=== PATIENT | male | born 1935 | race Caucasian/White ===

== ENCOUNTER 2016-08-23 06:08 | Inpatient (IN) | payer OTHER ==
[~2016-08-23] VITALS: Ht 172.7 cm; Wt 122.4 kg
[~2016-08-23 06:08] MED LIST: CLINDAMYCIN 600 MG/54 ML D5W 54 ML IV SCH; LACTATED RINGER'S 1000ML IV SCH; PATIENT'S ALLERGY INFO NEEDS ENTERED SCH
[2016-08-23] MEDS ORDERED: BUPIVACAINE 0.5 % 5 MG/1 ML MPF 30ML VIAL ONE ×2 (07:46→10:29)
[2016-08-23] MEDS ORDERED: BACITRACIN 50000 UNIT VIAL ONE ×2 (07:46→11:32)
[2016-08-23] MEDS ORDERED: LIDOCAINE HCL 1% 20 ML VIAL ONE ×2 (07:46→10:29)
[2016-08-23] MEDS ORDERED: NVLGI/PEN SC (07:47)
[2016-08-23] MEDS ORDERED: ATOR-54 PO (07:47)
[2016-08-23] MEDS ORDERED: oxygen (07:59)
[2016-08-23] MEDS ORDERED: ADVIN25/60 INH (07:59)
[2016-08-23] MEDS ORDERED: INSDGIPEN SC ×2 (07:59)
[2016-08-23] MEDS ORDERED: DUTA0.5C PO (07:59)
[2016-08-23] MEDS ORDERED: IPRA1AER2 INH (07:59)
[2016-08-23] MEDS ORDERED: LOSA1TAB PO (07:59)
[2016-08-23] MEDS ORDERED: FURO80TA63 PO (07:59)
[2016-08-23] MEDS ORDERED: ARTIOIN OP (07:59)
[2016-08-23] MEDS ORDERED: BTH25 PO (07:59)
[2016-08-23] MEDS ORDERED: DOCU100C31 PO (07:59)
[2016-08-23] MEDS ORDERED: FERR1TAB13 PO (07:59)
[2016-08-23] MEDS ORDERED: METO-217 PO (07:59)
[2016-08-23] MEDS ORDERED: PREG100C PO (07:59)
[2016-08-23] MEDS ORDERED: AMT24 PO (07:59)
[2016-08-23 08:00] VITALS: BP 163/64; PULSE 85; TEMP 36.9; O2SAT 98; BMI 41.0
--- NOTE | 2016-08-23 08:18 | History & Physical Bridge Note ---
H&P Re-Evaluation Bridge Note: I have examined the patient, reviewed the History & Physical and in the interval since the performance of the History & Physical I have noted the following changes of clinical significance: No changes noted
--- NOTE | 2016-08-23 08:18 | Procedure Note ---
Pre-Mod Sedation Assessment General Date of Moderate Sedation: Aug 23, 2016. Review Cardiovascular: regular rate, rhythm Abdomen: soft Lungs: lungs clear Airway Class: II Pre-Sedation Airway Assessment Oral Cavity: Dentures Able to Visualize Vocal Cords: No Short Thick Neck: Yes Hx of Sleep Apnea: Yes Smoking Status: Former Smoker Mallampati Classification: Class II ASA Classification: Class II Procedure Planning Contraindications-for Mod Sed: None Yes Notes The planned sedation has been discussed with the patient and consent obtained. I have identified the patient, determined the appropriateness of sedation and have assessed the patient immediately prior to the procedure. All medicine(s) and interventions are by my order.
[2016-08-23] MEDS ORDERED: MIDAZOLAM HCL 5 MG/ML 1 ML VIAL ONE ×2 (08:36→09:42)
[2016-08-23] MEDS ORDERED: FENTANYL CITRATE INJ 50 MCG/1 ML 2 ML VIAL ONE ×3 (08:36→11:48)
[2016-08-23] MEDS ORDERED: MIDAZOLAM HCL 1 MG/ML 2ML VIAL ONE (11:48)
--- NOTE | 2016-08-23 12:46 | Procedure Note ---
Post-Mod Sedation Assessment General Date of Moderate Sedation Aug 23, 2016. Vital Signs: Vital Signs Past 12 Hours Date Time Temp Pulse Resp B/P Pulse Ox O2 Delivery O2 Flow Rate FiO2 08/23/16 12:35 82 18 145/79 97 Nasal Cannula 3 08/23/16 08:00 36.9 85 20 163/64 98 Room Air Review - Discharge Criteria Vital Signs Stable: Yes Alert/Oriented/Conversant: Yes Returned to Baseline Mental St: Yes Nausea Absent/Minimal: Yes Pain/Discomfort/Absent/Minimal: Yes Normal/Baseline Respirations: Yes Active Bleeding?: No Pt Received D/C Instructions: N/A Prescriptions Given: None Specific Proced. D/C Criteria Distal Pulses Present (Cardiac: N/A Groin site assessed-Card Cath: N/A Voided Prior To Discharge: N/A Discharged Patients Adult Escort/Transportation: N/A
--- NOTE | 2016-08-23 12:48 | [facility] Post Operative Brief Note ---
Immediate Operative Summary Operative Date Aug 23, 2016. 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
[2016-08-23] MEDS ORDERED: OXYCODONE/ACETAMINOPHEN 5-325 TAB PO PRN (13:00)
[2016-08-23] MEDS: IPRATROPIUM BROMIDE/ALBUTEROL respimat INH INH SCH ×3 (13:00→21:05)
[2016-08-23] MEDS ORDERED: ACETAMINOPHEN 325 MG TAB PO PRN (13:00)
[2016-08-23] MEDS ORDERED: GLUCAGON FOR INJ 1 MG VIAL SQ PRN (13:30)
[2016-08-23] MEDS ORDERED: GLUCOSE 40% GEL 15 GM TUBE PO PRN (13:30)
[2016-08-23] MEDS ORDERED: DEXTROSE 50% 50 ML SYR IV PRN (13:30)
[2016-08-23] MEDS ORDERED: GLUCOSE 10 TABS/TUBE PO PRN (13:30)
[2016-08-23 14:21] VITALS: BP 145/74; PULSE 84; TEMP 36.8; Ht 172.7 cm; Wt 122.4 kg
[2016-08-23] MEDS ORDERED: IV FLUIDS COMPLETED PRN (15:15)
[2016-08-23 15:54] VITALS: BP 141/75; PULSE 72; TEMP 36.8; O2SAT 97
[2016-08-23] MEDS: BETHANECHOL CHL 25 MG TAB PO SCH ×2 (17:19→21:07)
[2016-08-23] MEDS: INSULIN ASPART 100 UNITS/ML 3 ML PEN SC SCH ×2 (17:22→21:14)
[2016-08-23 20:00] VITALS: O2SAT 97
[2016-08-23 20:23] VITALS: BP 145/67; PULSE 78; TEMP 36.7; O2SAT 97
[2016-08-23] MEDS ORDERED: INSULIN GLARGINE SOLOSTAR 100 UNITS/ML 3 ML PEN SC SCH (21:00)
[2016-08-23] MEDS: ATORVASTATIN 20 MG TAB PO SCH (21:00)
[2016-08-23] MEDS: PREGABALIN 100 MG CAP PO SCH (21:05)
[2016-08-23] MEDS: FLUTICASONE/SALMETEROL 250/50 (ADVAIR) 14 PUFF/1 INHALER INH SCH (21:05)
[2016-08-24] VITALS (10 sets, daily range): BP systolic 106–172; BP diastolic 53–74; PULSE 52–86; TEMP 36.8–37.1; O2SAT 95–100
--- NOTE | 2016-08-24 06:38 | DIAGNOSTIC IMAGING REPORT ---
CHEST 2 VIEWS ROUTINE CLINICAL HISTORY: Chest x-ray status post pacemaker placement. COMPARISON STUDY: No previous studies for comparison. FINDINGS: The heart is enlarged. There is a left subclavian dual-chamber central venous pacemaker. A right subclavian lead is also visualized. There is no failure. There is no lobar consolidation. There is no pneumothorax.[ IMPRESSION: No evidence of pneumothorax status post pacemaker placement. Electronically signed by: Jose Tavares M.D. 08/24/2016 6:36 AM Dictated Date/Time: 08/24/2016 6:35 AM
[2016-08-24] MEDS: INSULIN ASPART 100 UNITS/ML 3 ML PEN SC SCH ×4 (08:43→21:09)
[2016-08-24] MEDS: FUROSEMIDE 80 MG TAB PO SCH (09:00)
[2016-08-24] MEDS: PREGABALIN 100 MG CAP PO SCH ×2 (09:00→20:50)
[2016-08-24] MEDS ORDERED: INSULIN GLARGINE SOLOSTAR 100 UNITS/ML 3 ML PEN SC SCH (09:00)
[2016-08-24] MEDS: METOPROLOL SUCC 50MG EXT REL TAB PO SCH (09:00)
[2016-08-24] MEDS: LOSARTAN POTASSIUM 25 MG TAB PO SCH (09:00)
[2016-08-24] MEDS: BETHANECHOL CHL 25 MG TAB PO SCH ×4 (09:00→20:51)
[2016-08-24] MEDS: DOCUSATE SODIUM 100 MG CAP PO SCH (09:00)
[2016-08-24] MEDS: FLUTICASONE/SALMETEROL 250/50 (ADVAIR) 14 PUFF/1 INHALER INH SCH ×2 (09:51→20:45)
[2016-08-24] MEDS: IPRATROPIUM BROMIDE/ALBUTEROL respimat INH INH SCH ×4 (09:51→20:45)
[2016-08-24] MEDS ORDERED: CLINDAMYCIN IV 600 MG in DEXTROSE 5% ADD-VANTAGE 50ML 50 ML IV SCH (11:00)
--- NOTE | 2016-08-24 13:05 | History & Physical Bridge Note ---
H&P Re-Evaluation Bridge Note: I have examined the patient, reviewed the History & Physical and in the interval since the performance of the History & Physical I have noted the following changes of clinical significance: PT IS POD #1 FROM RV PACING LEAD REVISION THAT WAS TUNNEDLED ACCROSS THE CHEST; OVERNIGHT PT HAS BEEN HAVING SOME NON CAPTURED PACING SPIKES AND HIS PACING THRESHOLD IS UP TODAY; PT WILL HAVE TO UNDERGO ANOTHER RV LEAD REVISION TODAY
--- NOTE | 2016-08-24 13:05 | Procedure Note ---
Pre-Mod Sedation Assessment General Date of Moderate Sedation: Aug 24, 2016. Vital Signs: Vital Signs Past 12 Hours Date Time Temp Pulse Resp B/P Pulse Ox O2 Delivery O2 Flow Rate FiO2 08/24/16 11:50 37.1 86 18 172/70 95 Room Air 08/24/16 08:01 Room Air 08/24/16 07:50 37.0 58 18 130/61 96 Room Air 08/24/16 04:00 36.8 52 20 106/61 100 Nasal Cannula 2.0 08/24/16 04:00 Room Air Review Cardiovascular: regular rate, rhythm Abdomen: soft Lungs: lungs clear Airway Class: II Pre-Sedation Airway Assessment Oral Cavity: Dentures Able to Visualize Vocal Cords: No Short Thick Neck: Yes Hx of Sleep Apnea: Yes Smoking Status: Former Smoker Mallampati Classification: Class II ASA Classification: Class II Procedure Planning Contraindications-for Mod Sed: None Yes Notes The planned sedation has been discussed with the patient and consent obtained. I have identified the patient, determined the appropriateness of sedation and have assessed the patient immediately prior to the procedure. All medicine(s) and interventions are by my order.
[2016-08-24] MEDS ORDERED: BACITRACIN 50000 UNIT VIAL ONE ×2 (13:17→14:09)
[2016-08-24] MEDS ORDERED: LIDOCAINE HCL 1% 20 ML VIAL ONE (13:17)
[2016-08-24] MEDS ORDERED: BUPIVACAINE 0.5 % 5 MG/1 ML MPF 30ML VIAL ONE (13:17)
[2016-08-24] MEDS ORDERED: FENTANYL CITRATE INJ 50 MCG/1 ML 2 ML VIAL ONE ×2 (13:41→14:13)
[2016-08-24] MEDS ORDERED: MIDAZOLAM HCL 5 MG/ML 1 ML VIAL ONE ×2 (13:41→14:13)
--- NOTE | 2016-08-24 16:58 | [facility] Post Operative Brief Note ---
Immediate Operative Summary Operative Date Aug 24, 2016. 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
--- NOTE | 2016-08-24 16:58 | Procedure Note ---
Post-Mod Sedation Assessment General Date of Moderate Sedation Aug 24, 2016. Vital Signs: Vital Signs Past 12 Hours Date Time Temp Pulse Resp B/P Pulse Ox O2 Delivery O2 Flow Rate FiO2 08/24/16 16:50 85 16 124/66 100 Nasal Cannula 3 08/24/16 13:06 37.1 86 18 172/70 95 Room Air 08/24/16 12:00 95 Room Air 08/24/16 11:50 37.1 86 18 172/70 95 Room Air 08/24/16 08:01 Room Air 08/24/16 07:50 37.0 58 18 130/61 96 Room Air Review - Discharge Criteria Vital Signs Stable: Yes Alert/Oriented/Conversant: Yes Returned to Baseline Mental St: Yes Nausea Absent/Minimal: Yes Pain/Discomfort/Absent/Minimal: Yes Normal/Baseline Respirations: Yes Active Bleeding?: No Pt Received D/C Instructions: N/A Prescriptions Given: None Specific Proced. D/C Criteria Distal Pulses Present (Cardiac: N/A Groin site assessed-Card Cath: N/A Voided Prior To Discharge: N/A Discharged Patients Adult Escort/Transportation: N/A
--- NOTE | 2016-08-24 17:03 | Discharge Instructions ---
Discharge Instructions Admission Reason for Admission: Complete Heart Block,Elevated Rv Threshold Discharge Discharge Diagnosis / Problem: RV PACING LEAD MALFUNCTION; CHB Discharge Goals Goal(s): Improve function Activity Recommendations Activity Limitations: as noted below (DO NOT LIFT THE RIGHT ELBOW OVER THE RIGHT SHOULDER FOR 1 MONTH; DO NOT LIFT MORE THAN 10 POUNDS WITH EITHER ARM FOR 2 WEEKS) Exercise/Sports Limitations: as tolerated May Resume Sexual Activity: after follow-up appointment Shower/Bathe: tomorrow Driving or Machine Use: resume 1 day after discharge . Current Hospital Diet Patient's current hospital diet: AHA Diet (Heart Healthy) Discharge Diet Recommended Diet: AHA Diet (Heart Healthy), Diabetes Type 2 Diet Procedures Procedures Performed: RV PACING LEAD REVISION, DUAL CHAMBER RATE RESPONSIVE PACEMAKER GENERATOR CHANGE, POCKET REVISION, CAPPED THE OLD RV PACING LEAD FOLLOWING DAY ANOTHER RV PACING LEAD REVISION Pending Studies Studies pending at discharge: no Medical Emergencies . Who to Call and When: Medical Emergencies: If at any time you feel your situation is an emergency, please call 911 immediately. . Non-Emergent Contact Non-Emergency issues call your: [employer] . . "Provider Documentation" section prepared by Lucy Russell. VTE Core Measure Inpt VTE Proph given/why not?: Treatment not indicated
--- NOTE | 2016-08-24 17:08 | Discharge Summary ---
Discharge Summary Admission Date: Aug 24, 2016 at 11:31 Discharge Date: Aug 25, 2016 Discharge Disposition: Home Principal Diagnosis: RV PACING LEAD MALFUNCTION Secondary Diagnoses/Problems: INTERMITTENT CHB HTN HLD CHRONIC RIGHT SIDED HF, NYHA CLASS II CKD STAGE III PULMONARY HTN DM PURNIMA Procedures: RV PACING LEAD REVISION WITH TUNNELING ACROSS THE CHEST AND RATE RESPONSIVE PERMANENT PACEMAKER GENERATOR CHANGE ON 08/23/2016 BUT THEN ON 08/24/2016 HAD TO REDO THE RV LEAD REVISION DUE TO INTERMITTENT CAPTURE AND ELEVATED THRESHOLDS Medication Reconciliation Continued Medications: Artificial Tears Oph Oint (Lacri-Lube Sop Oph Oint) Oint 0.25-0.5 INCH OP QID, #1 TUBE TO THE AFFECTED EYE UP TO QID PRN Atorvastatin (Lipitor) 20 Mg Tab 1 TAB PO PM for 90 Days, #90 TAB 1 Refill Bethanechol Chl (Bethanechol Chloride) 25 Mg Tab 25 MG PO QID Docusate Sodium (Docusate Sodium) 100 Mg Cap 1 CAP PO DAILY for 30 Days, #30 CAP Dutasteride (Avodart) 0.5 Mg Cap 1 CAP PO DAILY for 30 Days, #30 CAP 5 Refills Ferrous Sulfate (Kp Ferrous Sulfate) 325 Mg Tab 1 TAB PO DAILY for 30 Days, #30 TAB 3 Refills Fluticasone Prop/Salmeterol (Advair Diskus 250/50 60 Dose) 1 Ea Aerp 1 PUFFS INH BID for 90 Days, #3 INHALER 3 Refills Furosemide (Lasix) 80 Mg Tab 1 TAB PO DAILY for 30 Days, #30 TAB 5 Refills Insulin Aspart (Novolog Flexpen) 100 Units/Ml Inj 6 UNITS SC TID before meals Insulin Glargine (Lantus Solostar) 100 Unit/Ml Inj 35 SC AM, PEN Insulin Glargine (Lantus Solostar) 100 Unit/Ml Inj 30 SC PM, PEN Ipratropium-Albuterol (Combivent Respimat) 1 Aer Aer 1 PUFFS INH QID, INH Losartan Potassium (Cozaar) 25 Mg Tab 1 TAB PO DAILY for 30 Days, #30 TAB 5 Refills Lubiprostone (Amitiza) 24 Mcg Cap 1 CAP PO BID for 30 Days, #60 CAP 5 Refills Metoprolol Succinate (Toprol Xl) 50 Mg Tabcr 50 MG PO DAILY, #30 TAB Pregabalin (Lyrica) 100 Mg Cap 1 CAP PO BID for 30 Days, #60 CAP 2 Refills [oxygen] () Hospital Course PT WAS ADMITTED FOR ELECTIVE RV LEAD PACING LEAD REVISION DUE TO ELEVATED THRESHOLDS. HE UNDERWENT PROCEDURE INITIALLY ON 08/23/2016 WITHOUT COMPLICATIONS ; HOWEVER, BEING MONITORED OVERNIGHT WE FOUND INTERMITTENT RV PACING CAPTURE AND THE RV PACING THRESHOLD WAS ELEVATED SO WE HAD TO RE-OPERATE ON 08/24/2016. SECOND PROCEDURE DID NOT HAVE ANY COMPLICATIONS AND DID HAVE BETTER OUTCOMES. PT WAS MONITORED OVERNIGHT AND DISCHARGED HOME IN A STABLE CONDITION ON 2016. Total time spent on discharge = This includes examination of the patient, discharge planning, medication reconciliation, and communication with other providers. Discharge Instructions ACTIVITY RECOMMENDATIONS: * Do not raise affected arm (RIGHT) over head for 1 weeks. SPECIAL CARE INSTRUCTIONS: * If bleeding occurs, apply direct pressure to area for 5 minutes. * Call your doctor if you have severe pain, fever, drainage or bleeding at site. * Keep dressing on and dry for 48 hours then remove. * Keep any scheduled doctor's appointment. * Implant Card - hand held device with website information given. SKIN IRRITATION: * You may experience some redness and/or swelling in the area where radiation was administered. If any skin irritation occurs, please contact your family physician. FOLLOW UP VISIT: Keep any scheduled doctor appointments.
[2016-08-24] MEDS: VANCOMYCIN INJ 1,000 MG in SODIUM CHLORIDE 0.9% 250ML 250 ML IV SCH (19:36)
[2016-08-24] MEDS ORDERED: PHARMACY GLYCEMIC MGMT CONSULT PRN (20:15)
[2016-08-24] MEDS: ATORVASTATIN 20 MG TAB PO SCH (20:45)
[2016-08-24] MEDS ORDERED: INSULIN GLARGINE SOLOSTAR 100 UNITS/ML 3 ML PEN SC ONE (20:45)
--- NOTE | 2016-08-24 20:55 | Pharmacy Progress Note ---
Glycemic: Assessment & Plan Date of Service Aug 24, 2016. Assessment & Plan 08/24/16 ASSESSMENT: * 80 yo M admitted for cardiology evaluation/intervention. BSGs have been elevated due to patient refusing Novolog dosing today and Lantus not being given the AM of 08/23 and the AM of 08/24. Since admission, patient has only received PM dosing of Lantus (about half his basal regimen). Nurse called pharmacy with BSG 360 mg/dL. PLAN: * Instead of giving home dose of Lantus tonight, I will increase to 50 units X 1 dose since patient is basal deficient from the past few days * Resume home regimen of Lantus in the AM * I will tighten his Novolog and add more frequent checks due to sustained hyperglycemia * Patient will likely be discharged home tomorrow on home regimen- unable to assess if regimen is appropriate as we have no A1c from this admission * Basal insulin: Lantus 50 units now X 1, then resume Lantus 35 units in the AM and 30 units in the PM * Correctional Insulin: Novolog Correction per scale ACHS Goal Range: Low 100 mg/dL - High 140 mg/dL Correction Factor: 15 mg/dL/unit * Prandial insulin: Per carb ratio of 1 unit per 5 grams CHO consumed Pharmacy will continue to monitor patient daily and write orders per [facility] inpatient glycemic control protocol. Thanks. * Please note that the plan above was derived based on current level of insulin resistance and hospital stress. These recommendations are appropriate for inpatient admission only. Plan of care upon discharge will need to be reassessed to avoid potential outpatient hypo/hyperglycemia.
[2016-08-25] VITALS (8 sets, daily range): BP systolic 101–151; BP diastolic 43–81; PULSE 74–92; TEMP 36.8–37.1; O2SAT 96–99
[2016-08-25] MEDS: INSULIN ASPART 100 UNITS/ML 3 ML PEN SC SCH ×3 (00:24→07:00)
[2016-08-25 06:11] LABS: HEMATOCRIT 33.7 % (42-52); MEAN CELL VOLUME 93.9 fL (80-100); MEAN CORPUSCULAR HEMOGLOBIN 32.3 pg (25-34); MEAN CORPUSCULAR HGB CONC 34.4 g/dl (32-36); MEAN PLATELET VOLUME 10.2 fL (7.4-10.4); PLATELET COUNT 138 K/uL (130-400); RED BLOOD COUNT 3.59 M/uL (4.7-6.1); WHITE BLOOD COUNT 8.27 K/uL (4.8-10.8)
[2016-08-25 06:38] LABS: BUN/CREATININE RATIO 14.5 (10-20); CALCIUM 8.7 mg/dl (8.5-10.1); CREATININE 1.5 mg/dl (0.60-1.40); POTASSIUM 4.1 mmol/L (3.5-5.1)
--- NOTE | 2016-08-25 06:51 | DIAGNOSTIC IMAGING REPORT ---
CHEST 2 VIEWS ROUTINE CLINICAL HISTORY: Pacemaker placement COMPARISON STUDY: 08/24/2016 FINDINGS: The cardiac and mediastinal contours remain stable. Heart is mildly enlarged. There is no failure. There is no focal pulmonary consolidation. A left subclavian dual-chamber central venous pacemaker is again visualized. There are 2 left subclavian leads, and a single right subclavian lead. There is minor scarring of left lung base. No pneumothorax is visualized. No pleural effusions are visualized. IMPRESSION: No active disease in the chest. Electronically signed by: Jose Tavares M.D. 08/25/2016 6:50 AM Dictated Date/Time: 08/25/2016 6:48 AM
[2016-08-25] MEDS: FUROSEMIDE 80 MG TAB PO SCH (09:00)
[2016-08-25] MEDS ORDERED: INSULIN GLARGINE SOLOSTAR 100 UNITS/ML 3 ML PEN SC SCH ×2 (09:00→21:00)
[2016-08-25] MEDS: BETHANECHOL CHL 25 MG TAB PO SCH (09:00)
--- NOTE | 2016-08-25 09:06 | Clinical Documentation Query ---
Dr. POSADAS SUNNY : CLINICAL DOCUMENTATION QUERY Patient is a 80 year old male who underwent RV pacing lead revision, generator change, pocket revision, and capping of old RV pacing lead. Documentation includes a diagnosis of CHF, not otherwise specified. H&P includes echocardiogram (09/19) findings including an LVEF of 55-60%, mild MR/TR, mild LA dilation, and elevated RV systolic pressures. Home medications include Lasix, Cozaar, and Toprol XL. In your clinical opinion is this patient being managed for: ( ) Chronic diastolic congestive heart failure ( ) Other explanation of clinical findings (Please Explain) ( ) Unable to determine (Please Define) ( ) Need to Discuss ( ) Not Agree The medical record reflects the following clinical findings, treatment, and risk factors. Clinical Indicators: As above Treatment: Lasix, Cozaar, Toprol Risk Factors: Age, pulmonary hypertension Please clarify and document your clinical opinion in the progress notes and discharge summary. Terms such as "probable", "suspected", "likely", "questionable", "possible", or "still to be ruled out" are acceptable. IF IN AGREEMENT, YOU MUST DOCUMENT ABOVE DIAGNOSTIC STATEMENT IN DAILY PROGRESS NOTES AND DISCHARGE SUMMARY. This document is not part of the patient's record. Thank You, Francisco Jiménez, RN [phone]
[2016-08-25] MEDS: VANCOMYCIN INJ 1,000 MG in SODIUM CHLORIDE 0.9% 250ML 250 ML IV SCH (10:03)
[2016-08-25] MEDS: FLUTICASONE/SALMETEROL 250/50 (ADVAIR) 14 PUFF/1 INHALER INH SCH (10:03)
[2016-08-25] MEDS: IPRATROPIUM BROMIDE/ALBUTEROL respimat INH INH SCH (10:03)
[2016-08-25] MEDS: DOCUSATE SODIUM 100 MG CAP PO SCH (10:04)
[2016-08-25] MEDS: LOSARTAN POTASSIUM 25 MG TAB PO SCH (10:05)
[2016-08-25] MEDS: METOPROLOL SUCC 50MG EXT REL TAB PO SCH (10:06)
[2016-08-25] MEDS: PREGABALIN 100 MG CAP PO SCH (10:16)
--- NOTE | 2016-08-25 12:37 | Cardiology Follow-Up ---
Subjective Subjective Date of Service: Aug 25, 2016. Pt evaluation today including: conversation w/ patient, physical exam, chart review, lab review, review of studies Pain: minimal Review of Systems Constitutional: No fever Respiratory: No shortness of breath Cardiac: No chest pain, No edema, No palpitations Abdomen: No vomiting Objective Vital Signs Last Vital Signs Documentation Date Time Temp Pulse Resp B/P Pulse Ox O2 Delivery O2 Flow Rate FiO2 08/25/16 12:00 97 Room Air 2.0 08/25/16 11:22 36.9 92 18 08/25/16 11:08 151/81 Physical Exam: General Appearance: WD/WN, no apparent distress Eyes: bilateral eyes EOMI, bilateral eyes PERRL, bilateral eyes abnormal EOM Neck: supple, no JVD Respiratory/Chest: lungs clear, normal breath sounds Cardiovascular: regular rate, rhythm, no edema, no murmur Abdomen: soft Neurologic/Psychiatric: alert, oriented x 3 Skin: warm/dry Assessment and Plan Impression: 1. RV pacing threshold elevated malfunction; s/p lead revision with genrator change and tunnel accorss the chest 08/23/2016 however required a redo lead revsion following day due to intermittent capture 2. CHB s/p ppm 3. HTN 4. HLD 5. Chronic right sided heart failure, NYHA Class III 6. CKD stage III 7. Pulmonary HTN 8. DM 9. PURNIMA Plan: -Ok for discharge home today -Continue home medications -Pt to f/u in our device clinic in [place] 7-10 days -Pt not allowed to lift the right elbow over the right shoulder for 1 month Discharge planning: home Medications: Medications Administered Medications (Trade) Dose Ordered Sig/Horacio Route Start Time Stop Time Status Last Admin Dose Admin Clindamycin Phosphate (Cleocin 600mg/ 54ml D5W) 54 ml @ 100 mls/hr PREOP IV 08/23/16 06:00 08/23/16 15:00 DC 08/23/16 06:00 100 MLS/HR Fentanyl Citrate (Fentanyl Inj) 100 mcg STK-MED ONCE .ROUTE 08/23/16 08:36 08/23/16 08:37 DC 08/23/16 08:36 100 MCG Midazolam HCl (Versed Inj) 5 mg STK-MED ONCE .ROUTE 08/23/16 08:36 08/23/16 08:37 DC 08/23/16 08:36 5 MG Fentanyl Citrate (Fentanyl Inj) 100 mcg STK-MED ONCE .ROUTE 08/23/16 09:42 08/23/16 09:44 DC 08/23/16 09:42 100 MCG Midazolam HCl (Versed Inj) 5 mg STK-MED ONCE .ROUTE 08/23/16 09:42 08/23/16 09:44 DC 08/23/16 09:42 5 MG Fentanyl Citrate (Fentanyl Inj) 100 mcg STK-MED ONCE .ROUTE 08/23/16 11:48 08/23/16 11:49 DC 08/23/16 11:48 25 MCG Midazolam HCl (Versed Inj) 2 mg STK-MED ONCE .ROUTE 08/23/16 11:48 08/23/16 11:49 DC 08/23/16 12:37 1 MG Oxycodone/ Acetaminophen (Percocet 5-325mg Tab) 1 tab for pain scale 4-6 2 t... Q6H PRN PO 08/23/16 13:00 09/06/16 12:59 08/25/16 10:16 1 TAB Bethanechol Chloride (Urecholine Tab) 25 mg QID PO 08/23/16 17:00 09/22/16 16:59 08/25/16 09:00 25 MG Docusate Sodium (coLACE CAP) 100 mg DAILY PO 08/24/16 09:00 09/23/16 08:59 08/25/16 10:04 100 MG Salmeterol Xinafoate/ Fluticasone (Advair Diskus 250/50 Inh) 1 puff BID INH 08/23/16 21:00 09/22/16 20:59 08/25/16 10:03 1 PUFF Furosemide (Lasix Tab) 80 mg DAILY PO 08/24/16 09:00 09/23/16 08:59 08/25/16 09:00 80 MG Insulin Aspart (novoLOG ASPART) SLIDING SCALE ACHS SC 08/23/16 16:15 09/22/16 16:14 08/25/16 07:00 5 UNITS Insulin Glargine (Lantus Solostar Pen) 30 unit PM SC 08/23/16 21:00 08/24/16 20:32 DC 08/23/16 21:15 30 UNIT Albuterol/ Ipratropium (Combivent Respimat Inh) 1 puffs QID INH 08/23/16 13:00 09/22/16 12:59 08/25/16 10:03 1 PUFFS Losartan Potassium (coZAAR TAB) 25 mg DAILY PO 08/24/16 09:00 09/23/16 08:59 08/25/16 10:05 25 MG Metoprolol Succinate (Toprol Xl Tab) 50 mg DAILY PO 08/24/16 09:00 09/23/16 08:59 08/25/16 10:06 50 MG Pregabalin 100 mg 100 mg BID PO 08/23/16 21:00 09/22/16 20:59 08/25/16 10:16 100 MG Clindamycin Phosphate/Dextrose (Cleocin Iv/ Dextrose Add-[place] 50ML) 54 ml @ 100 mls/hr TODAY@1100 IV 08/24/16 11:00 08/24/16 20:24 DC 08/24/16 12:30 100 MLS/HR Lidocaine HCl (Xylocaine 1% Inj (Local)) 20 ml STK-MED ONCE .ROUTE 08/24/16 13:17 08/24/16 13:19 DC 08/24/16 13:17 20 ML Bupivacaine HCl (Marcaine 0.5% MPF Inj) 30 ml STK-MED ONCE .ROUTE 08/24/16 13:17 08/24/16 13:19 DC 08/24/16 13:17 30 ML Bacitracin (Bacitracin Inj) 50,000 units STK-MED ONCE .ROUTE 08/24/16 13:17 08/24/16 13:19 DC 08/24/16 13:17 50,000 UNITS Fentanyl Citrate (Fentanyl Inj) 100 mcg STK-MED ONCE .ROUTE 08/24/16 13:41 08/24/16 13:43 DC 08/24/16 13:41 100 MCG Midazolam HCl (Versed Inj) 5 mg STK-MED ONCE .ROUTE 08/24/16 13:41 08/24/16 13:43 DC 08/24/16 13:41 4 MG Bacitracin (Bacitracin Inj) 50,000 units STK-MED ONCE .ROUTE 08/24/16 14:09 08/24/16 14:11 DC 08/24/16 14:09 50,000 UNITS Fentanyl Citrate (Fentanyl Inj) 100 mcg STK-MED ONCE .ROUTE 08/24/16 14:13 08/24/16 14:15 DC 08/24/16 14:13 100 MCG Midazolam HCl 5 mg 5 mg STK-MED ONCE .ROUTE 08/24/16 14:13 08/24/16 14:15 DC 08/24/16 14:13 5 MG Vancomycin HCl/ Sodium Chloride (Vancomycin Inj/ Nss 250ml) 270 ml @ 125 mls/hr Q12H IV 08/24/16 19:00 08/25/16 18:59 08/25/16 10:03 125 MLS/HR Insulin Glargine (Lantus Solostar Pen) 50 unit NOW ONCE SC 08/24/16 20:45 08/24/16 20:46 DC 08/24/16 21:08 50 UNIT Insulin Glargine (Lantus Solostar Pen) 35 unit DAILY SC 08/25/16 09:00 09/24/16 08:59 08/25/16 09:00 35 UNIT Insulin Aspart (novoLOG ASPART) SLIDING SCALE 0000,0400 SC 08/25/16 00:00 09/24/16 00:00 08/25/16 00:24 6 UNITS Lab Results: Last 24 Hours Test 08/24/16 19:50 08/25/16 00:17 08/25/16 04:15 08/25/16 05:46 Bedside Glucose 360 mg/dl 220 mg/dl 107 mg/dl 89 mg/dl Test 08/25/16 05:55 08/25/16 11:04 White Blood Count 8.27 K/uL Red Blood Count 3.59 M/uL Hemoglobin 11.6 g/dL Hematocrit 33.7 % Mean Corpuscular Volume 93.9 fL Mean Corpuscular Hemoglobin 32.3 pg Mean Corpuscular Hemoglobin Concent 34.4 g/dl RDW Standard Deviation 47.8 fL RDW Coefficient of Variation 13.9 % Platelet Count 138 K/uL Mean Platelet Volume 10.2 fL Sodium Level 143 mmol/L Potassium Level 4.1 mmol/L Chloride Level 109 mmol/L Carbon Dioxide Level 24 mmol/L Anion Gap 10.0 mmol/L Blood Urea Nitrogen 22 mg/dl Creatinine 1.50 mg/dl Est Creatinine Clear Calc Drug Dose 50.8 ml/min Estimated GFR () 50.6 Estimated GFR (Non- 43.7 BUN/Creatinine Ratio 14.5 Random Glucose 83 mg/dl Calcium Level 8.7 mg/dl Bedside Glucose 307 mg/dl ECG: ENGRAVER MACHINE Telemetry:ENGRAVER MACHINE CXR: leads in position no PTX Pacemaker Interrogation: normal function and stable RV lead testing
--- NOTE | 2016-08-26 13:47 | OPERATIVE REPORT ---
DATE OF OPERATION: 08/23/2016 PREOPERATIVE DIAGNOSIS: Right ventricular pacing lead malfunction with elevated threshold. POSTOPERATIVE DIAGNOSIS: Same. PROCEDURES: Right ventricular pacing lead revision that was tunneled across the chest, dual-chamber permanent pacemaker rate responsive generator change, pocket revision. SURGEON: Dr. Lucy Russell. PILLING MACHINE OPERATOR: Dr. Khadar Greene. ANESTHESIA: 11 mg of Versed, 225 mcg of fentanyl. INTRAVENOUS FLUIDS: 350 mL. IV CONTRAST: 30 mL. TIME: Procedure start time 09:24 and end time 12:35. BLOOD LOSS: Less than 20 mL. COMPLICATIONS: None. CONDITION: Stable. URINE OUTPUT: Not applicable. SPECIMENS: None. FINDINGS: None. INDICATIONS: This is a 80-year-old gentleman with a past medical history of complete heart block in which he underwent a permanent pacemaker in December 2009 with a generator change in December 2014. 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 He was recommended a lead revision due to the significant increase in the pacing threshold with significant battery depletion. CONSENT: Consent was obtained prior to the patient going into electrophysiology lab. The patient was explained risks, benefits and alternatives to the procedure. Risks include but not limited to sudden cardiac , cardiac arrhythmias, cerebrovascular accident, myocardial infarction, injury to the blood vessels, chamber of the heart, lungs, bleeding and infection. The patient understood these risks and agreed to the procedure as planned. Informed consent was obtained. DESCRIPTION OF THE PROCEDURE: The patient was brought into the electrophysiology lab in a fasting state. He was connected to continuous cardiac monitoring. A time-out was performed to ensure patient identity and procedure correctly. The patient was prepped and draped over the entire front chest area bilateral infraclavicular space in a normal surgical standard fashion. Moderate conscious sedation was given throughout the procedure for patient's comfort level. [place] precautions were maintained throughout the procedure. We initially did a peripheral venogram on the left upper extremity and found that his venous system was occluded on the left. We then did a peripheral venogram on the right to demonstrate the cephalic vein as well as the axillary vein. 10 mL of 1% lidocaine, bupivacaine mixture were given in the right deltopectoral groove. A small incision was made in the right deltopectoral groove and a venous access was obtained through the needle stick to the axillary vein. A guidewire was inserted without any resistance. An 8-[place] sheath was inserted without any resistance. The right ventricular pacing lead was then advanced into the right ventricle and positioned into the right ventricular apex under fluoroscopic guidance. Initially we had not the best positioning and some elevated thresholds. With the guidewire taken out at a different position the threshold seemed better and stable. We opted to keep there. The 8-[place]hal[place] sheath was peeled away and this lead was fixated to the pectoralis muscle using 0 silk suture. Additional 1% lidocaine were given in the tissue above the sternum as we were going to have to tunnel this lead across to get to the pulse generator. Using blunt dissection, we created path through the soft tissue across the sternum. We ultimately used a tunneling device a [employer] EP catheter sheath where we cut the curve off of it, using the dilator we were able to get through and then the dilator was removed and the lead was attached to the sheath and pulled through across the chest. This is when Dr. Greene was scrubbed helping me so we could both work on the chest. The lead was short and so we had to use a lead sewing pattern layout technician in order to be able to plug the lead into the pulse generator. The lead sewing pattern layout technician was attached to the lead. We then rechecked numbers and the threshold looked good, impedance was stable. The pulse generator was then removed from the capsule and the body. The atrial lead was intraoperatively tested. The old right ventricular pacing lead was capped. A new pulse generator was attached to the old right atrial lead and the new right ventricular lead that tunneled across the chest with an sewing pattern layout technician making sure that the pins were in appropriate position, passed the set screws and the set screws were all tightened. The pacemaker pocket was revised, so it was more medially located since we had tunneled across. The pocket was flushed with copious amounts of bacitracin saline wash and inspected for hemostasis. The new pulse generator was placed in the pocket, making sure that the leads were lying flat beneath the device. A stay stitch using 0 silk suture was used to secure the device to the pectoralis muscle. The incision was then closed. Mariella stat was used in the pocket. The incision was then closed in a 3-layer fashion using 2-0 Vicryl interrupted sutures followed by 3-0 Vicryl suture followed by a 4-0 Monocryl running stitch and Dermabond was applied. Then the incision on the right side was closed in a similar manner in a 3-layer fashion using 2-0 Vicryl suture followed by 3-0 Vicryl suture, followed by a 4-0 Monocryl stitch. Of note, we also before closing the right side, I did flush the pocket with copious amounts of bacitracin saline wash. EQUIPMENT: 1. Explanted generator was Medtronic model number ADDRL1, serial number [id number], implanted 12/30/2014. The new pulse generator was a Medtronic Adapta LADDRL1 serial number [id number]. 2. The right atrial lead, model# 5076-52 cm serial number [id number] implanted 12/31/2009. The capped old pacing right ventricular lead model number 4092-58, serial number [id number] implanted 12/31/2009. The new implanted right ventricular pacing lead Medtronic 5076-65 cm, serial number [id number]. 3. The lead sewing pattern layout technician on the right ventricular pacing lead is a Medtronic 6984M serial number [id number]. 4. The sheaths that I used for tunneling was a [place] braided transseptal guide [employer]. INTRAOPERATIVE TESTIN. Right atrial lead: P-wave 1.4 millivolts, impedance 337 ohms, threshold 0.4 volts at 1.5 milliamps. 2. Right ventricular lead: No P waves, impedance 940 ohms, threshold 0.5 volts at 0.5 milliamps. FINAL MEASUREMENTS THROUGH THE DEVICE: 1. Right atrial lead: P-wave sensing 1.4 millivolts, impedance 340 ohms, threshold 0.75 volts at 0.4 milliseconds. 2. Right ventricular lead: R-wave 11.2 millivolts, impedance 878 ohms, threshold 0.5 volts at 0.4 milliseconds. FINAL PARAMETERS: DDDR 60/120. Right atrial amplitude 1.5 volts, pulse width 0.4 milliseconds, sensitivity 0.3 millivolts. Right ventricular amplitude 3.5 volts, pulse width 0.4 milliseconds, sensitivity 2.8 millivolts. IMPRESSION: Successful right ventricular pacing lead revision with tunneling across the chest due to patient being occluded on the left, along with a rate responsive dual-chamber permanent pacemaker generator change and a pocket revision. PLAN: Monitor patient overnight, 12-lead ECG, chest x-ray. He can continue his home medications. He should not lift the right elbow over the right shoulder for 1 month and no heavy lifting with both arms for 2 weeks. He should shower in 2 days and he should follow up in our [place] office in 7-10 days for device and wound check. I attest to the content of the Intraoperative Record and any orders documented therein. Any exceptions are noted below. TERI
--- NOTE | 2016-08-26 13:56 | OPERATIVE REPORT ---
DATE OF OPERATION: 08/24/2016 PREOPERATIVE DIAGNOSIS: Right ventricular pacing lead malfunction after redo lead revision with elevated thresholds and intermittent capture. POSTOPERATIVE DIAGNOSIS: Same. PROCEDURE: Redo right ventricular pacing lead revision and tunneling across chest along with peripheral venogram under fluoroscopic guidance. SURGEON: Dr. Lucy Russell. ASSISTANTS: None. ANESTHESIA: 9 mg of Versed, 200 mcg of fentanyl, start time 1358, end time 1650. IV FLUIDS: 300 mL. IV CONTRAST: 10 mL. URINE OUTPUT: Not applicable. SPECIMENS: None. FINDINGS: None. DRAINS: None. BLOOD LOSS: Less than 15 mL. INDICATIONS: This is a 80-year-old gentleman who has a history of complete heart block which he underwent a pacemaker initially in 2009, followed then by generator change in 2014. He has a known chronic right ventricular pacing wire lead has been having elevated threshold and underwent a lead revision yesterday on 08/23/2016 by myself with the assistance of Dr. Greene as we had to tunnel the lead across the chest from right to left due to his left side venous system being occluded. The procedure went well yesterday with no complications and thresholds during the procedure were good. However, overnight he was monitored and he has been having positional intermittent ventricular capture and his threshold of the new RV pacing lead are elevated. Due to this we had to go back in and do another lead revision. CONSENT: Consent was obtained prior to the patient going into the electrophysiology lab. The patient as informed of risks, benefits, alternatives to the procedure. Risks include but not limited to sudden cardiac , cardiac arrhythmias, cerebrovascular accident, myocardial infarction, injury to the blood vessels, chamber of the heart, bleeding, injury to the lung and infection. The patient understood these risks and agreed to the procedure as planned. Informed consent was obtained. DESCRIPTION OF PROCEDURE: The patient was brought into the electrophysiology lab in a fasting state. He was connected to continuous cardiac monitoring. A timeout was performed to ensure patient's identity and procedure correctly. He received prophylactic antibiotics prior to incision. [place] precautions were maintained throughout the procedure. He was prepped and draped over the bilateral infraclavicular space and across the chest in normal standard fashion. 10 mL of 1% lidocaine bupivacaine mixture were given over both surgical incisions on either side in the infraclavicular space. Using the [place] the incision was reopened and the sutures were removed. Initially we worked on the left-sided incision, opened that and I got the pulse generator out of the pocket. I initially uncapped the old pacing lead and hooked that up to the alligator cables so we had ventricular pacing during the procedure as the patient does have intermittent complete heart block. I then disconnected the pulse generator from the right atrial and right ventricular lead. We then unscrewed the lead from the heart, then went to the right side incision and gave lidocaine and then opened up the incision with the [place] removing the sutures. Got down to the suture sleeve and used an 11 blade to cut the 0 silk that sutured it down out. The lead was extracted from the heart without any complications. We then did a peripheral venogram on the right to identify the axillary and cephalic vein. Initially I tried to do an axillary stick however I was not easily obtaining the axillary vein, so I did blunt dissection down to the cephalic vein. I isolated the cephalic vein using 0 silk sutures and nicked it with 11 blade and the Glidewire was inserted without any resistance. An short 8-[place] sheath was initially inserted without any resistance and I placed another guidewire through the sheath to allow for retained venous access. I ended up switching out the short 8-[place] sheath for a long 7-[place] sheath since the cephalic vein was a little tortuous. We then used the entire new right ventricular pacing lead longer 85 cm and advanced this into the right ventricle and positioned it into the right ventricle on the septum. There was adequate pacing and sensing thresholds and no diaphragmatic stimulation with high output pacing. I continued to test it when I had the patient take deep coughing and it still seemed like adequate pacing and sensing thresholds and ultimately a better position then the one I had yesterday. We then sutured the lead down to the pectoralis muscle on the right side. Then we started tunneling the lead through across the chest using a [employer] 8 [place] sheath. We were able to pull the lead across the chest and this time since it was longer we did not need any lead extenders. We again intraoperatively tested the lead and there was adequate pacing and sensing thresholds. I then washed the pocket out with copious amounts of bacitracin saline wash. I put a new cap on the old initial right ventricular pacing lead that was from 2009. We checked intraoperatively the right atrial lead. We then connected the pulse generator back to the leads making sure that the pins were in appropriate position, passed the set screws and the set screws were tightened. Placed the new pulse generator in the pocket making sure that the leads were lying flat beneath the device and used a stay stitch using 0 silk suture to secure the device to the pectoralis muscle. The incision was then closed in a 3-layer fashion using 2-0 Vicryl interrupted suture followed by a 3-0 Vicryl interrupted suture followed by a 4-0 Monocryl running stitch and Dermabond and Steri-Strips were applied. The right-sided incision was then closed in a similar 3-layer fashion using a 2-0 Vicryl interrupted suture followed by 3-0 Vicryl suture followed by a 4-0 Monocryl running stitch and Steri-Strips were applied. EQUIPMENT: The pulse generator is a Videostrip model number ADDRL1, serial number [id number], implanted 08/23/2016. The right atrial lead, model number 5076-52 cm, serial number [id number] implanted 12/31/2009. Right ventricular lead model number 5076-85 cm, serial number [id number]. The explanted right ventricular lead that was implanted on 08/23/2016 is model number 5076-65 cm, serial number [id number] along with the lead direct entry midwife 6984M, serial number [id number]. The capped right ventricular lead from December 2009 is model number 4092-58, serial number [id number]. INTRAOPERATIVE TESTIN. Right atrial lead: P waves 1 millivolt, impedance 356 ohms, threshold 0.7 volts at 2.1 milliamps. 2. Right ventricular lead: R-wave 14.8 millivolts, impedance 864 ohms, threshold 0.7 volts at 0.8 milliamps. FINAL MEASUREMENTS THROUGH THE DEVICE: 1. Right atrial lead: P waves 1 millivolt, impedance 344 ohms, threshold 0.75 volts at 0.4 milliseconds. 2. Right ventricular lead: R-wave 15.68 millivolts, impedance 778 ohms, threshold 0.5 volts at 0.4 milliseconds. FINAL PARAMETERS: DDDR 60/130. Right ventricular amplitude 1.5 volts, pulse width 0.4 milliseconds, sensitivity 0.35 millivolts. Right ventricular amplitude 3.5 volts, pulse width 0.4 milliseconds, sensitivity 2 millivolts. IMPRESSION: Successful redo of lead revision with tunneling across the chest due to occlusion on the left venous system secondary to prior RV lead revision with intermittent capture and elevated threshold. PLAN: Monitor patient overnight, 12-lead ECG, chest x-ray. He is not allowed to lift the right elbow over the right shoulder for 1 month, can shower in 2 days. No heavy lifting more than 10 pounds for 2 weeks. Follow up in our [place] office in 7-10 days for device and wound check. I attest to the content of the Intraoperative Record and any orders documented therein. Any exceptions are noted below. MERRYD
== END 2016-08-25 12:50 | disposition home or self-care (01) | DRG 243 ==
LOC: C.ACU 06:08 → C.2T 12:53 → OBSVTOIN 08-24 11:31
PROVIDERS: ADMIT Internal Medicine; ATTEND Internal Medicine
PROC: 02HK3JZ Insertion of Pacemaker Lead into Right Ventricle, Percutaneous Approach (ICD-10-PCS; principal; 2016-08-23 07:00)
PROC: 0JPT0PZ Removal of Cardiac Rhythm Related Device from Trunk Subcutaneous Tissue and Fascia, Open Approach (ICD-10-PCS; principal; 2016-08-23 07:00)
PROC: 0JH606Z Insertion of Pacemaker, Dual Chamber into Chest Subcutaneous Tissue and Fascia, Open Approach (ICD-10-PCS; principal; 2016-08-23 07:00)
PROC: 02PA3MZ Removal of Cardiac Lead from Heart, Percutaneous Approach (ICD-10-PCS; 2016-08-24)
PROC: 02HK3JZ Insertion of Pacemaker Lead into Right Ventricle, Percutaneous Approach (ICD-10-PCS; 2016-08-24)
DX: T82.110A Breakdown (mechanical) of cardiac electrode, initial encounter (principal); I13.0 Hypertensive heart and chronic kidney disease with heart failure and stage 1 through stage 4 chronic kidney disease, or unspecified chronic kidney disease; I44.2 Atrioventricular block, complete; Y71.2 Prosthetic and other implants, materials and accessory cardiovascular devices associated with adverse incidents; N18.3 Chronic kidney disease, stage 3 (moderate); I27.2 Other secondary pulmonary hypertension; I50.9 Heart failure, unspecified; E11.22 Type 2 diabetes mellitus with diabetic chronic kidney disease; E11.3599 Type 2 diabetes mellitus with proliferative diabetic retinopathy without macular edema, unspecified eye; E11.42 Type 2 diabetes mellitus with diabetic polyneuropathy; E11.43 Type 2 diabetes mellitus with diabetic autonomic (poly)neuropathy; K31.84 Gastroparesis; J45.40 Moderate persistent asthma, uncomplicated; D63.1 Anemia in chronic kidney disease; J30.9 Allergic rhinitis, unspecified; E78.5 Hyperlipidemia, unspecified; N40.0 Benign prostatic hyperplasia without lower urinary tract symptoms; G47.33 Obstructive sleep apnea (adult) (pediatric); K59.00 Constipation, unspecified; I87.2 Venous insufficiency (chronic) (peripheral); Z99.81 Dependence on supplemental oxygen; Z79.4 Long term (current) use of insulin; Z79.51 Long term (current) use of inhaled steroids; Z79.82 Long term (current) use of aspirin; Z79.899 Other long term (current) drug therapy